=== PATIENT | male | born 1960 | race Two or more races ===

== ENCOUNTER → 2016-05-24 | Outpatient (CLI) | payer MEDICARE, MEDICAID ==
[~2016-05-24] MED LIST: BACL20TA PO; BUPR300T28 PO; CITA-73 PO; DICL1GEL26 TOP; ERGO2000 PO; GABA800T97 PO; OMEP20CA5 PO; TRAZ100T2 PO
[2016-05-24 12:38] LABS: Urine RBC None Seen /hpf (0 - 3)
[2016-05-24 13:00] LABS: Basophils # (auto) 0 uL; Basophils % (auto) 0.5 % (0.0-2.0); Eosinophils # (auto) 0.3 uL; Eosinophils % (auto) 6.1 % (0.0-7.0); Hematocrit 45.5 % (41.0-53.0); Hemoglobin 15.9 g/dL (13.5-17.5); Lymphocytes # (auto) 1.7 uL; Lymphocytes % (auto) 31.5 % (10.0-50.0); Mean Corpuscular Volume 94.3 fL (80.0-100.0); Mean Platelet Volume 8.3 fL (7.4-10.4); Monocytes # (auto) 0.5 uL; Monocytes % (auto) 9.5 % (0.0-12.0); Neutrophils # (auto) 2.8 uL; Neutrophils % (auto) 52.4 % (37.0-80.0); Platelet Count (auto) 196 10^3/uL (140-450); Red Cell Distribution Width 12.5 % (11.6-16.0); White Blood Cell 5.3 10^3/uL (4.4-10.8)
[2016-05-24 13:11] LABS: Albumin 3.4 g/dL (3.4-5.0); Calcium 8.6 mg/dL (8.5-10.1); Potassium 3.8 mmol/L (3.5-5.1)
[2016-05-24 13:12] LABS: Urine Bilirubin Negative (Negative); Urine Blood Negative /uL (Negative); Urine Color Yellow (Yellow); Urine Ketone Negative (Negative); Urine Nitrite Negative (Negative); Urine Squamous Epithelial Cell FEW /hpf (<5); Urine Urobilinogen Normal (Negative)
[2016-05-24 13:13] LABS: Urine Glucose 3+ mg/dL (Normal)
[2016-05-24 13:16] LABS: BUN/Creatinine Ratio 12.3; Bilirubin, Total 0.6 mg/dL (0.2-1.0); Total Protein 8.1 g/dL (6.4-8.2)
[2016-05-24 13:19] LABS: INR 1.05 (0.9-1.15); Partial Thromboplastin Time 25.9 sec (22.64-33.71); Prothrombin Time 10.8 sec (9.37-12.3)
== END | disposition home or self-care (01) ==
LOC: LAB 10:49
PROVIDERS: ATTEND Surgery
DX: Z01.818 Encounter for other preprocedural examination (principal)
CPT/HCPCS: 36415; 80053; 81001; 85025; 85610; 85730; 86850; 86900; 86901